=== PATIENT | female | born 1985 | race African-American/Black ===

== ENCOUNTER 2022-12-21 16:38 | Observation (INO) | payer MEDICAID ==
[~2022-12-21] VITALS: Ht 154 cm; Wt 64.4 kg
== END 2022-12-21 18:11 | disposition home or self-care (01) ==
LOC: SPU 16:38
PROVIDERS: ADMIT Obstetrics & Gynecology; ATTEND Obstetrics & Gynecology
DX: O62.9 Abnormality of forces of labor, unspecified (principal); O26.893 Other specified pregnancy related conditions, third trimester; R53.1 Weakness; R42 Dizziness and giddiness; Z3A.31 31 weeks gestation of pregnancy
CPT/HCPCS: 94760; G0379; G0378